=== PATIENT | female | born 1935 | race Caucasian/White ===

== ENCOUNTER → 2017-02-21 | Outpatient (CLI) | payer MEDICARE | LOC: OD 11:52 | PROVIDERS: ATTEND Physician Assistant Medical | DX: R06.02 Shortness of breath (principal) | CPT/HCPCS: 71020 ==

== ENCOUNTER → 2017-07-12 | Outpatient (CLI) | payer MEDICARE ==
--- NOTE | 2017-07-12 15:23 | RADIOLOGY REPORT (SQ) ---
EXAM DESCRIPTION: CHEST PA/LAT COMPLETED DATE/TIME: 07/12/2017 3:04 pm REASON FOR STUDY: HEART DISEASE (I51.9), HTN (I10) COMPARISON: 02/21/2017 TECHNIQUE: Frontal and lateral radiographic views of the chest acquired. NUMBER OF VIEWS: Two view. LIMITATIONS: None. FINDINGS: LUNGS AND PLEURA: No opacities, masses or pneumothorax. No pleural effusion. MEDIASTINUM AND HILAR STRUCTURES: Stable postoperative changes. HEART AND VASCULAR STRUCTURES: Slight cardiomegaly stable. No overt CHF. BONES: Stable kyphosis thoracic spine. HARDWARE: Wire sutures mediastinum. OTHER: No other significant finding. IMPRESSION: Nothing acute. TECHNICAL DOCUMENTATION: JOB ID: [id number] [employer]- All Rights Reserved
--- NOTE | 2017-07-12 17:04 | RADIOLOGY REPORT (SQ) ---
EXAM DESCRIPTION: U/S RETROPERITON (RENAL/AORTA) COMPLETED DATE/TIME: 07/12/2017 4:31 pm REASON FOR STUDY: PELVIC AND PERINEAL PAIN (R10.2) I51.9 HEART DISEASE, UNSPECIFIED I10 ESSENTIAL (PRIMARY) HYPERTENSION R10.2 PELVIC AND PERINEAL PAIN COMPARISON: None. TECHNIQUE: Dynamic and static grayscale images acquired of the kidneys and bladder and recorded on P ACS. Additional selected color Doppler and spectral images recorded. LIMITATIONS: Right abdominal bowel gas FINDINGS: RIGHT KIDNEY: Limited visualization. 8 cm in length. No gross hydronephrosis. LEFT KIDNEY: Normal size, 10 cm in length. Normal echogenicity. No solid or suspicious masses. No hy dronephrosis. No calcifications. BLADDER: No masses. OTHER FINDINGS: No other significant finding. IMPRESSION: No hydronephrosis. No bladder stones. TECHNICAL DOCUMENTATION: JOB ID: [id number] [employer]- All Rights Reserved
== END ==
LOC: RAD 14:15
PROVIDERS: ATTEND Urology
DX: R10.2 Pelvic and perineal pain (principal); I51.9 Heart disease, unspecified; I10 Essential (primary) hypertension
CPT/HCPCS: 71020; 76770

== ENCOUNTER 2018-05-24 16:11 | Emergency (ER) | payer MEDICARE ==
--- NOTE | 2018-05-24 17:01 | ER Document Report ---
ED Medical Screen (RME) - General Chief Complaint: Rectal Bleeding Stated Complaint: BLOOD IN STOOL Time Seen by Provider: 05/24/18 16:51 Notes: RAPID MEDICAL EVALUATION DISCLOSURE I have seen this patient as part of a Rapid Medical Evaluation and, if applicable, placed any initially appropriate orders. The patient will be seen and fully evaluated, including a full history and physical exam, by a provider ( in Main ED or Fast Track) when a room becomes available. 82-year-old female here with daughter who states that she has had 2 bloody stools today and it is bright red. She reports that the patient is demented and for that reason I cannot obtain an accurate history or review of systems from her. Patient has no prior history of GI bleeds ulcers varices liver disease. She does take Eliquis for atrial fibrillation. EXAM CTAB RRR No abdominal TTP TRAVEL OUTSIDE OF THE [place] IN LAST 30 DAYS: No - Related Data Allergies/Adverse Reactions: No Known Drug Allergies Allergy (Verified 05/24/18 16:12) Past Medical History - Social History Chew tobacco use (# tins/day): No Frequency of alcohol use: None Drug Abuse: None - Past Medical History Cardiac Medical History: Reports: Hx Atrial Fibrillation, Hx Hypertension Renal/ Medical History: Denies: Hx Peritoneal Dialysis Psychiatric Medical History: Reports: Hx Dementia, Hx Depression Past Surgical History: Reports: Hx Cardiac Surgery - open heart? - Immunizations Hx Diphtheria, Pertussis, Tetanus Vaccination: No - unk. Physical Exam - Vital signs Vitals: Temp Pulse Resp BP Pulse Ox 98.7 F 88 16 93/74 L 97 05/24/18 16:18 05/24/18 16:18 05/24/18 16:18 05/24/18 16:18 05/24/18 16:18 Course - Vital Signs Vital signs: Temp Pulse Resp BP Pulse Ox 98.7 F 88 16 93/74 L 97 05/24/18 16:18 05/24/18 16:18 05/24/18 16:18 05/24/18 16:18 05/24/18 16:18
[2018-05-24 17:46] LABS: ABSOLUTE BASOPHILS # (AUTO) 0.1 10^3/uL (0.0-0.2); ABSOLUTE EOSINOPHILS # (AUTO) 0.3 10^3/uL (0.0-0.6); ABSOLUTE LYMPHOCYTES (AUTO) 2.4 10^3/uL (0.5-4.7); ABSOLUTE MONOCYTES (AUTO) 0.7 10^3/uL (0.1-1.4); ABSOLUTE NEUT (AUTO) 4.3 10^3/uL (1.7-8.2); BASOPHILS % (AUTO) 1.3 % (0-2); EOSINOPHILS % (AUTO) 4.1 % (0-6); HEMOGLOBIN 14.1 g/dL (12.0-15.5); LYMPHOCYTES % (AUTO) 30.6 % (13-45); MEAN CORPUSCULAR HEMOGLOBIN 30.6 pg (27.0-33.4); MEAN CORPUSCULAR HGB CONC 34.5 g/dL (32.0-36.0); MEAN CORPUSCULAR VOLUME 89 fl (80-97); MONOCYTES % (AUTO) 8.9 % (3-13); PLATELET COUNT 245 10^3/uL (150-450); RED BLOOD COUNT 4.62 10^6/uL (3.72-5.28); RED CELL DISTRIBUTION WIDTH 13.6 % (11.5-14.0); SEGMENTED NEUTROPHILS % (AUTO) 55.1 % (42-78); TOTAL CELLS COUNTED % (AUTO) 100 %; WHITE BLOOD COUNT 7.9 10^3/uL (4.0-10.5)
[2018-05-24 17:53] LABS: INTERNATIONAL RATION (INR) 1.01; PARTIAL THROMBOPLASTIN TIME 34.9 SEC (23.5-35.8); PROTHROMBIN TIME 13.8 SEC (11.4-15.4)
[2018-05-24 18:03] LABS: ALANINE AMINOTRANSFERASE 31 U/L (9-52); ALBUMIN 4.3 g/dL (3.5-5.0); ALKALINE PHOSPHATASE 165 U/L (38-126); ANION GAP 13 (5-19); ASPARTATE AMINO TRANSFERASE 19 U/L (14-36); BILIRUBIN,DIRECT 0.3 mg/dL (0.0-0.4); BILIRUBIN,TOTAL 0.5 mg/dL (0.2-1.3); BLOOD UREA NITROGEN 20 mg/dL (7-20); CALCIUM 9.4 mg/dL (8.4-10.2); CARBON DIOXIDE 30 mmol/L (22-30); CHLORIDE 103 mmol/L (98-107); GLUCOSE 80 mg/dL (75-110); LIPASE 353.7 U/L (23-300); SODIUM 146.4 mmol/L (137-145); TOTAL PROTEIN 6.8 g/dL (6.3-8.2)
[2018-05-24 18:04] LABS: POTASSIUM 4.1 mmol/L (3.6-5.0)
--- NOTE | 2018-05-24 18:28 | ER Document Report ---
ED GI Bleed / Rectal Pain - General Chief Complaint: Rectal Bleeding Stated Complaint: BLOOD IN STOOL Time Seen by Provider: 05/24/18 16:51 Mode of Arrival: Ambulatory Information source: Patient Notes: Chief complaint: Blood per rectum History of complain:( obtained from----patient) 82 years old female was brought in today because each time after defecation and the daughter white her back she noted some blood in the tissue. Therefore concerned and brought to the ED. With a history of hemorrhoids. No active bleeding. No complain of any dizziness abdominal pain. Nausea vomiting. No epigastric pain. No constitutional symptoms. Onset: As above Duration: Today Severity: Mild Quality: Mild Context: Not applicable Exacerbating factor and relieving factors: Defecation REVIEW OF SYSTEMS: CONSTITUTIONAL : Denies fever, chills, or sweats. Denies recent illness. EENT: Denies eye, ear, throat, or mouth pain or symptoms. Denies nasal or sinus congestion or discharge. Denies throat, tongue, or mouth swelling or difficulty swallowing. CARDIOVASCULAR: Denies chest pain. Denies palpitations or racing or irregular heart beat. Denies ankle edema. RESPIRATORY: Denies cough, cold, or chest congestion. Denies shortness of breath, difficulty breathing, or wheezing. GASTROINTESTINAL: Denies distention. Denies nausea, vomiting, or diarrhea. Denies blood in vomitus, stools, or per rectum. Denies black, tarry stools. Denies constipation. GENITOURINARY: Denies difficulty urinating, painful urination, burning, frequency, blood in urine, or discharge. FEMALE GENITOURINARY: Denies vaginal bleeding, heavy or abnormal periods, irregular periods. Denies vaginal discharge or odor. MUSCULOSKELETAL: Denies back or neck pain or stiffness. Denies joint pain or swelling. SKIN: Denies rash, lesions or sores. HEMATOLOGIC : Denies easy bruising or bleeding. LYMPHATIC: Denies swollen, enlarged glands. NEUROLOGICAL: Denies confusion or altered mental status. Denies passing out or loss of consciousness. Denies dizziness or lightheadedness. Denies headache. Denies weakness or paralysis or loss of use of either side. Denies problems with gait or speech. Denies sensory loss, numbness, or tingling. Denies seizures. PSYCHIATRIC: Denies anxiety or stress. Denies depression, suicidal ideation, or homicidal ideation. ALL OTHER SYSTEMS REVIEWED AND NEGATIVE. PHYSICAL EXAMINATION: GENERAL: Well-appearing, well-nourished and in no acute distress. HEAD: Atraumatic, normocephalic. EYES: Pupils equal round and reactive to light, extraocular movements intact, conjunctiva are normal. ENT: Nares patent, oropharynx clear without exudates. Moist mucous membranes. NECK: Normal range of motion, supple without lymphadenopathy LUNGS: Breath sounds clear to auscultation bilaterally and equal. No wheezes rales or rhonchi. HEART: Regular rate and rhythm without murmurs ABDOMEN: Soft, nontender, nondistended abdomen. No guarding, no rebound. No masses appreciated. Examination of genitals-deferred Musculoskeletal: Normal range of motion, no pitting or edema. No cyanosis. Digital rectal exam-shows no blood, positive for hemorrhoids internal, yellow stool. NEUROLOGICAL: Cranial nerves grossly intact. Normal speech, normal gait. Normal sensory, motor exams PSYCH: Normal mood, normal affect. SKIN: Warm, Dry, normal turgor, no rashes or lesions noted. Dictation was performed using [employer] voice recognition software TRAVEL OUTSIDE OF THE [place] IN LAST 30 DAYS: No - Related Data Allergies/Adverse Reactions: No Known Drug Allergies Allergy (Verified 05/24/18 16:12) Past Medical History - General Information source: Patient, Relative Cannot obtain history due to: Dementia - Social History Smoking Status: Former Smoker Chew tobacco use (# tins/day): No Frequency of alcohol use: None Drug Abuse: None Family History: Reviewed & Not Pertinent - Negative for premature coronary artery disease or sudden cardiac in the family amongst first degree relatives. Patient has suicidal ideation: No Patient has homicidal ideation: No - Past Medical History Cardiac Medical History: Reports: Hx Atrial Fibrillation, Hx Hypertension Renal/ Medical History: Denies: Hx Peritoneal Dialysis Psychiatric Medical History: Reports: Hx Dementia, Hx Depression Past Surgical History: Reports: Hx Cardiac Surgery - open heart? - Immunizations Hx Diphtheria, Pertussis, Tetanus Vaccination: No - unk. Review of Systems - Review of Systems Notes: Dictated Physical Exam - Vital signs Vitals: Temp Pulse Resp BP Pulse Ox 98.7 F 88 16 93/74 L 97 05/24/18 16:18 05/24/18 16:18 05/24/18 16:18 05/24/18 16:18 05/24/18 16:18 - Notes Notes: Dictated Course - Re-evaluation Re-evalutation: 05/24/18 18:26 Family was explained this was due to internal hemorrhoids. The blood work all came back normal which was explained to the family. Family understood - Vital Signs Vital signs: Temp Pulse Resp BP Pulse Ox 98.7 F 88 16 93/74 L 97 05/24/18 16:18 05/24/18 16:18 05/24/18 16:18 05/24/18 16:18 05/24/18 16:18 - Laboratory Result Diagrams: 05/24/18 17:33 05/24/18 17:33 Laboratory results interpreted by me: 05/24/18 17:33 Sodium 146.4 H Est GFR (Non-Af Amer) 53 L Alkaline Phosphatase 165 H Lipase 353.7 H Discharge - Discharge Clinical Impression: Hemorrhoids Qualifiers: Hemorrhoid type: first degree Qualified Code(s): K64.0 - First degree hemorrhoids Condition: Fair Disposition: HOME, SELF-CARE Instructions: Hemorrhoids ([facility]) Prescriptions: Hydrocortisone Acetate [Anusol Hc 25 mg Supp.rect] 1 supp.rect MT BID #14 supp.rect
[2018-05-24 19:00] VITALS: BP 112/72
== END 2018-05-24 19:00 | disposition home or self-care (01) ==
LOC: ER 16:11
DX: K64.0 First degree hemorrhoids (principal); R19.5 Other fecal abnormalities; K62.5 Hemorrhage of anus and rectum; Z87.891 Personal history of nicotine dependence; I10 Essential (primary) hypertension
CPT/HCPCS: 36415; 80053; 83690; 85025; 85610; 85730; 99283